=== PATIENT | male | born 1960 | race Caucasian/White ===

== ENCOUNTER 2020-04-16 07:38 | Outpatient (RCR) | payer BC, SELFPAY ==
[2020-04-16] MEDS: diphenhydrAMINE HCl CAP 25 MG CAPSULE PO (08:01)
[2020-04-16] MEDS: FAMOTIDINE 20 MG TABLET PO (08:01)
[2020-04-16] MEDS: ACETAMINOPHEN 325 MG TABLET 650 MG PO (08:01)
[2020-04-16 08:11] VITALS: BP 149/84; PULSE 85; RESP 18; TEMP 35.5; O2SAT 99
--- NOTE | 2020-04-16 08:19 | PC.NURSE ---
Patient does not have a current list of home medications so unable to record home meds.
[2020-04-16 10:00] VITALS: BP 147/85; PULSE 77; O2SAT 97
--- NOTE | 2020-04-17 15:36 | PC.NURSE ---
Patient states he feels better and he had side effects from the treatment.
== END 2020-04-24 15:33 ==
LOC: AMCINF 07:38
PROVIDERS: PCP Family Medicine; Visit Provider Family Medicine
DX: Z23 Encounter for immunization (principal); U07.1 COVID-19; E11.9 Type 2 diabetes mellitus without complications
CPT/HCPCS: A9270; J7050; M0239; Q0239

== ENCOUNTER 2020-07-29 07:52 | Outpatient (CLI) | payer BC, SELFPAY ==
--- NOTE | 2020-07-31 12:52 | WPDHOMESLEEP ---
Sleep Study - Home Unattended Date of Study: 07/29/20 Ordering Provider: CAROLYN Bearden Interpreting Provider: Wanda Sanches MD Home Sleep Study Type: Apnea Link Air Height: 1.85 m Weight: 122.016 kg Body Mass Index: 35.4 Neck Circumference (inches): 18.5 [place]: 8 Reason for Sleep Study loud snoring, poor quality sleep Sleep History Braulio Pantoja is a 59-year-old male who has complaints including loud snoring and interrupted breathing during his sleep. This has been going on longer than 2 years. He wakes up during the night and has excessive daytime sleepiness. There is a family history with his brother and father also having sleep disordered breathing. He occasionally awakens from sleep feeling short of breath. He rarely awakens at night with heartburn, belching or coughing. He frequently snores and occasionally it is loud enough that others complain about it. He occasionally has trouble sleeping with a cold. He rarely wakes up gasping for breath at night. He occasionally has breathing problems at night observed by others. He rarely sweats excessively at night. He never notices his heart pounding or beating irregularly night. He occasionally falls asleep during the day, occasionally a involuntarily but never while driving. He does not have loss of muscle tone with strong emotion. He rarely has daytime difficulties due to excessive sleepiness. He does not feel paralyzed on waking or falling asleep. He rarely has vivid dreamlike scenes upon awakening or falling asleep. He does not feel afraid to go to sleep. He occasionally has nightmares. He occasionally remembers his dreams. He does not have racing thoughts. He rarely feels sad or depressed. He does not have anxiety. He does not have muscular tension. He does not notice parts of his body jerking. He occasionally kicks at night. He rarely has morning jaw pain. He occasionally grinds his teeth at night. He rarely wakes up with pain in the neck and spine. He has memory problems, sexual problems, stomach difficulties and he takes and acids frequently. Normal bedtime is between 9:00 p.m. and 10:00 p.m. falling asleep within 5 minutes typically waking twice at night to urinate. While awake, he watches television. He stays awake for an hour. He wakes the morning between 6 and 7:00 a.m.. On the weekends, he goes to bed later, between 10:00 p.m. and 11:00 p.m., wakes between 6 and 7:00 a.m.. He estimates getting 6 hours of sleep at night. He does not generally take naps in the afternoon or evening. A short nap is not refreshing. He is drowsy in the morning for 1 hour or longer. He feels better in the morning compared to other times of day. On occasion he awakens feeling refreshed. Habits: Never smoked tobacco. Caffeine 2 cups a day. Alcohol once a week. No recreational drugs. [facility] Past Medical History Medical History (Updated 07/31/20 @ 13:01 by Wanda Sanches MD) Diabetes Hypercholesteremia Hypertension Osteoarthritis Family History Family History (Updated 07/31/20 @ 13:08 by Wanda Sanches MD) Father Obstructive sleep apnea Sibling Obstructive sleep apnea Social History Social History Smoking status: Never smoker Spiritual care concerns: No Medications Medications: Ozempic injected weekly aspirin 325 mg a day Men's one daily vitamin Cetirizine 10 mg aday metoprolol tartrate 100 mg 1 p.o. twice a day clonidine HCl 0.1 mg 4 tablets twice a day amlodipine besylate 10 mg daily KCL ER 20 mEq extended-release 6 tablets daily metformin 500 mg 1 tablet in the morning 2 in the evening glimepiride 4 mg with breakfast omeprazole 20 mg delayed release one twice a day Tresiba flex-touch injector 36 units subcutaneously daily spironolactone 25 mg 2 tablets in the morning and then 1 in the evening if needed atorvastatin calcium 40 mg daily benazepril HCL 40 mg every other day hydralazine HCL 50 mg 2 tablets with food in the morning
[2020-07-31 13:09] VITALS: BMI 35.4
== END 2020-07-29 07:53 | disposition home or self-care (01) ==
LOC: ANHCSM 07:52
PROVIDERS: PCP Family Medicine; Visit Provider Physician Assistant
DX: G47.33 Obstructive sleep apnea (adult) (pediatric) (principal)
CPT/HCPCS: 95806

== ENCOUNTER 2023-02-25 01:15 | Day surgery (SDC) | payer BC, SELFPAY ==
[2023-01-15 14:31] VITALS: BMI 33.3
[2023-02-10 14:40] VITALS: BMI 33.3
--- NOTE | 2023-02-23 10:13 | SUR.PREOP ---
Patient called regarding upcoming procedure. Message left on patient's voicemail regarding preop instructions, appointment times, and procedure prep.
--- NOTE | 2023-02-24 15:05 | PM.HPGS ---
History of Present Illness History of Present Illness Consent: Risks, benefits, and alternatives have been discussed and questions answered. Patient agrees to proceed with procedure. Chief complaint: neoplasm screening Narrative: Braulio Clifford is a 62 year old male Referred for colon cancer screening. 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 Family History Family History Father Obstructive sleep apnea Sibling Obstructive sleep apnea Social History Social History Smoking status: Never smoker Alcohol intake: current Drinks per week: 3 Substance use: never Substance use type: does not use Lack of Transportation: No Lack of Food: Never True Current Housing: I Have Housing Concerned About Future Housing: No Difficulty Paying Gas/Electric Bills: No Difficulty Paying for Meds: No Currently Unemployed: No Education: High School Diploma/GED Difficulty w/ Childcare or Family Care: No Living arrangements: with family Occupation/Education: occupation Gender identity (if verbalized by the patient): Male Sexual Orientation (if Verbalized by the Patient): Straight or Heterosexual Spiritual care concerns: No Meds Home Medications and Allergies Home Medications Medication Instructions Recorded Confirmed Type amlodipine 10 mg tablet 10 mg PO DAILY 04/27/22 02/25/23 History atorvastatin 40 mg tablet 40 mg PO DAILY 04/27/22 02/10/23 History benazepril 40 mg tablet 40 mg PO DAILY 04/27/22 02/25/23 History clonidine HCl 0.2 mg tablet 0.2 mg PO BID 04/27/22 02/25/23 History metoprolol tartrate 100 mg tablet 100 mg PO DAILY 04/27/22 02/25/23 History omeprazole 20 mg capsule,delayed 20 mg PO BID 04/27/22 02/25/23 History release potassium chloride 20 mEq 100 meq PO DAILY 04/27/22 02/25/23 History tablet,extended release spironolactone 25 mg tablet 25 mg PO TID 04/27/22 02/25/23 History insulin degludec 100 unit/mL (3 38 unit (0.38 mL) subcut DAILY #45 05/22/22 02/25/23 Rx mL) subcutaneous pen (Tresiba mL FlexTouch U-100 insulin) semaglutide 0.25 mg or 0.5 mg (2 0.5 mg (0.736 mL) subcut WEEKLY #9 11/23/22 02/25/23 Rx mg/3 mL) subcutaneous pen injector mL (Ozempic) Allergies Allergy/AdvReac Type Severity Reaction Status Date / Time No Known Allergies Allergy Verified 02/25/23 08:38 Exam Resp: Auscultation: clear to auscultation bilaterally Cardio: Rate: regular rate Rhythm: regular rhythm GI: GI Palp: Yes Soft to palpation and No Tenderness to palpation present (GI) Assessment and Plan Assessment and plan (1) Colon cancer screening: Code(s): Z12.11 - Encounter for screening for malignant neoplasm of colon Status: Acute Assessment and Plan: Colonoscopy with possible biopsy or polypectomy or cautery or injection of substances.
[2023-02-25 08:41] VITALS: BP 159/101; PULSE 59; RESP 18; TEMP 36.3; O2SAT 98; BMI 33.7
[2023-02-25] MEDS: LACTATED RINGERS 1,000 ML 150 ML IV CONT (08:44)
[2023-02-25 09:02] LABS: Glucose Point of Care 119 mg/dl (65-105)
--- NOTE | 2023-02-25 09:03 | WPDANESEPPF ---
Anes - Initial Pre Proc Eval Procedure: Operation Date: 02/25/23 09:30 Proposed Procedures p Screening Colonoscopy - Alfred Ware MD Date/Time: 02/25/23 09:03 Surgeon: Alfred Ware MD Pre Op Diagnosis: neoplasm screening Patient Data Age: 62 Gender: M Height: 1.88 m Weight: 119.4 kg Last Vital Signs Temp 97.3 F L 02/25/23 08:41 Pulse 59 L 02/25/23 08:41 Resp 18 02/25/23 08:41 BP 159/101 H 02/25/23 08:41 Pulse Ox 98 02/25/23 08:41 O2 Del Method Room Air 02/25/23 08:41 Allergies Allergy/AdvReac Type Severity Reaction Status Date / Time No Known Allergies Allergy Verified 02/25/23 08:38 Home Medications Medication Instructions Recorded Confirmed Type amlodipine 10 mg tablet 10 mg PO DAILY 04/27/22 02/25/23 History atorvastatin 40 mg tablet 40 mg PO DAILY 04/27/22 02/10/23 History benazepril 40 mg tablet 40 mg PO DAILY 04/27/22 02/25/23 History clonidine HCl 0.2 mg tablet 0.2 mg PO BID 04/27/22 02/25/23 History metoprolol tartrate 100 mg tablet 100 mg PO DAILY 04/27/22 02/25/23 History omeprazole 20 mg capsule,delayed 20 mg PO BID 04/27/22 02/25/23 History release potassium chloride 20 mEq 100 meq PO DAILY 04/27/22 02/25/23 History tablet,extended release spironolactone 25 mg tablet 25 mg PO TID 04/27/22 02/25/23 History insulin degludec 100 unit/mL (3 38 unit (0.38 mL) subcut DAILY #45 05/22/22 02/25/23 Rx mL) subcutaneous pen (Tresiba mL FlexTouch U-100 insulin) semaglutide 0.25 mg or 0.5 mg (2 0.5 mg (0.736 mL) subcut WEEKLY #9 11/23/22 02/25/23 Rx mg/3 mL) subcutaneous pen injector mL (Ozempic) Laboratory Tests 02/25/23 08:58 POC Capillary Glucose 119 H mg/dl (65-105) Patient hx anesthesia problems: none Family hx anesthesia problems: none Results Review: All pre-operative results and documents have been reviewed as part of the pre-operative evaluation. 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 Family History Family History Father Obstructive sleep apnea Sibling Obstructive sleep apnea Social History Social History Smoking status: Never smoker Alcohol intake: current Drinks per week: 3 Substance use: never Substance use type: does not use Lack of Transportation: No Lack of Food: Never True Current Housing: I Have Housing Concerned About Future Housing: No Difficulty Paying Gas/Electric Bills: No Difficulty Paying for Meds: No Currently Unemployed: No Education: High School Diploma/GED Difficulty w/ Childcare or Family Care: No Living arrangements: with family Occupation/Education: occupation Gender identity (if verbalized by the patient): Male Sexual Orientation (if Verbalized by the Patient): Straight or Heterosexual Spiritual care concerns: No Anes - Eval Final PreProcedure Day of Procedure 02/25/23 09:03 Patient weight: obese Heart: regular rate and rhythm Lungs: clear to auscultation Airway: Mallampati scale class III Neurological: alert and oriented Last oral intake: >/= 8 hours ASA classification: III Emergent: no Anesthetic plan: proceed Anesthesia type and monitoring: general GIVS and standard monitoring Results Review: All pre-operative results and documents have been reviewed as part
[2023-02-25 09:28] VITALS: BP 132/76; PULSE 59; RESP 23; O2SAT 99
[2023-02-25 09:38] VITALS: BP 127/73; PULSE 61; RESP 26; O2SAT 98
[2023-02-25 09:45] LABS: Glucose Point of Care 121 mg/dl (65-105)
[2023-02-25 09:48] VITALS: BP 137/80; PULSE 55; RESP 26; O2SAT 98
== END 2023-02-25 10:08 | disposition home or self-care (01) ==
PROVIDERS: PCP Family Medicine; Visit Provider Internal Medicine Gastroenterology
PROC: 0DJD8ZZ Inspection of Lower Intestinal Tract, Via Natural or Artificial Opening Endoscopic (ICD-10-PCS; CPT 45378; principal; 2023-02-25 09:30)
DX: Z12.11 Encounter for screening for malignant neoplasm of colon (principal); E11.40 Type 2 diabetes mellitus with diabetic neuropathy, unspecified; I10 Essential (primary) hypertension; E78.00 Pure hypercholesterolemia, unspecified; E87.6 Hypokalemia; Z79.4 Long term (current) use of insulin; Z79.85 Long-term (current) use of injectable non-insulin antidiabetic drugs; Z79.899 Other long term (current) drug therapy
CPT/HCPCS: 45378; 82948; J2704; J7120